=== PATIENT | female | born 2005 | race Caucasian/White ===

== ENCOUNTER 2025-01-10 02:46 | Emergency (ER) | payer OTHER, SELFPAY ==
[2025-01-10 02:48] VITALS: BP 137/106; PULSE 110; RESP 18; TEMP 37.8; O2SAT 100
[2025-01-10 04:48] LABS: BEDSIDEPREGUCG Negative (Negative)
[2025-01-10 04:51] LABS: Basophils Percent Auto 0.3 % (0.2-1.2); Eosinophils Percent Auto 0.2 % (0-4.4); Hematocrit 41.2 % (37.0-47.0); Hemoglobin 13.8 g/dL (12.0-15.0); Immature Granulocyte Absolute 0.06 K/mm3 (0.00-0.031); Immature Granulocyte Percent A 0.5 % (0-0.5); Lymphocytes Absolute Auto 0.75 K/mm3 (0.9-3.2); Lymphocytes Percent Auto 6.4 % (18.3-44.2); Mean Corpuscular HGB Conc 33.5 g/dl (32-36); Mean Corpuscular Hemoglobin 28.9 pg (26-34); Mean Corpuscular Volume 86.2 fl (80-100); Monocytes Absolute Auto 0.6 K/mm3 (0.1-0.6); Monocytes Percent Auto 4.9 % (2.6-8.5); Neutrophils Absolute Auto 10.3 K/mm3 (1.3-6.7); Neutrophils Percent Auto 87.7 % (45.5-73.1); Platelet Count Result 173 k/mm3 (150-375); Red Blood Count 4.78 M/mm3 (4.2-5.4); Red Cell Distribution Width 11.9 % (11.5-14.5); White Blood Count 11.7 K/mm3 (4.5-10.0)
[2025-01-10 04:54] LABS: Add Urine Microscopic? NO; Appearance Urine Clear (Clear); Bilirubin Urine Negative (Negative); Blood Urine Negative (Negative); Color Urine Yellow (Yellow); Glucose Urine UA Negative (Negative); Ketones Urine Negative (Negative); Leukocyte Esterase Ur Negative LEU/UL (Negative); Nitrate Urine Negative (Negative); Protein Urine Negative (Negative); Specific Grav Ur 1.015 (1.001-1.035); Urobilinogen Urine 0.2 mg/dL (<2.0); pH Urine 5.5 (5.0-9.0)
[2025-01-10 05:00] VITALS: BP 98/60; PULSE 81; RESP 18; TEMP 38.3; O2SAT 100
[2025-01-10 05:01] LABS: Alanine Aminotransferase 14 U/L (6-35); Albumin Level 4.7 g/dL (3.5-5.1); Alkaline Phosphatase 60 U/L (38-126); Anion Gap 12 mmol/L (4-12); Aspartate Amino Transferase 29 U/L (14-36); Bilirubin,Total 0.7 mg/dL (0.2-1.3); Blood Urea Nitrogen 13 mg/dL (7-17); Calcium 9.5 mg/dL (8.4-10.2); Carbon Dioxide 24 mmol/L (22-30); Chloride 102 mmol/L (98-107); Estimated Glomerular Filt Rate > 60; Glucose 98 mg/dL (65-110); Lipase 132 U/L (23-300); Sodium 138 mmol/L (137-145)
[2025-01-10 05:12] LABS: Strep Group A RT-PCR DETECTED (Negative)
[2025-01-10 05:27] LABS: Influenza A QL RT-PCR Negative (Negative); Influenza B QL RT-PCR Negative (Negative); RSV RNA, RT-PCR Negative (Negative); SARS-CoV-2 RNA PCR Negative (Negative)
--- NOTE | 2025-01-10 06:10 | ED.GENADULT ---
HPI - General Adult General Chief complaint: Fever Stated complaint: 102 fever at 1, diarrhea, sore throat Time Seen by Provider: 01/10/25 05:58 History of Present Illness HPI narrative: 19-year-old female presenting with 2 days of sore throat and fevers up to 101. She has had some diarrhea. Denies chest pain difficulty breathing or abdominal pain. Denies urinary symptoms. Related Data Allergies Allergy/AdvReac Type Severity Reaction Status Date / Time No Known Allergies Allergy Verified 01/10/25 04:03 Exam Narrative: APPEARANCE: No apparent distress. Head: Tonsils are erythematous with exudates EYES: EOMI, NOSE: Atraumatic NECK: Trachea midline RESPIRATORY: No increased rate of breathing clear to auscultation CARDIOVASCULAR: RRR, ABDOMINAL: Non-distended MUSCULOSKELETAl: No obvious deformities NEURO: Alert. Moving 4/4 extremities SKIN:: Warm, dry. Normal color PSYCHIATRIC: Normal affect Course Vital Signs Vital signs: Vital Signs Temperature 100.1 F H 01/10/25 02:48 Pulse Rate 110 H 01/10/25 02:48 Respiratory Rate 18 01/10/25 02:48 Blood Pressure 137/106 H 01/10/25 02:48 Pulse Oximetry 100 01/10/25 02:48 Oxygen Delivery Room Air 01/10/25 02:48 Temperature 101 F H 01/10/25 05:00 Pulse Rate 81 01/10/25 05:00 Respiratory Rate 18 01/10/25 05:00 Blood Pressure 98/60 L 01/10/25 05:00 Pulse Oximetry 100 01/10/25 05:00 Oxygen Delivery Room Air 01/10/25 02:48 Medical Decision Making [facility] Narrative Medical decision making narrative: -Course: 19-year-old female presenting with fevers and sore throat. Positive for strep. Otherwise well-appearing with stable vitals. Treated with antibiotics steroids and NSAIDs. Discharged with return precautions. -DDX includes but is not limited to: Strep throat, viral syndrome, mono Vital Signs Vital Signs: Vital Signs Temperature 100.1 F H 01/10/25 02:48 Pulse Rate 110 H 01/10/25 02:48 Respiratory Rate 18 01/10/25 02:48 Blood Pressure 137/106 H 01/10/25 02:48 Pulse Oximetry 100 01/10/25 02:48 Oxygen Delivery Room Air 01/10/25 02:48 Temperature 101 F H 01/10/25 05:00 Pulse Rate 81 01/10/25 05:00 Respiratory Rate 18 01/10/25 05:00 Blood Pressure 98/60 L 01/10/25 05:00 Pulse Oximetry 100 01/10/25 05:00 Oxygen Delivery Room Air 01/10/25 02:48 Lab Data 01/10/25 04:40 01/10/25 04:40 Labs: Lab Results 01/10/25 01/10/25 Range/Units 04:40 04:46 WBC 11.7 H (4.5-10.0) K/mm3 RBC 4.78 (4.2-5.4) M/mm3 Hgb 13.8 (12.0-15.0) g/dL Hct 41.2 (37.0-47.0) % MCV 86.2 (80-100) fl MCH 28.9 (26-34) pg MCHC 33.5 (32-36) g/dl RDW 11.9 (11.5-14.5) % Plt Count 173 (150-375) k/mm3 MPV 11.0 H (7.4-10.4) fl Immature Gran % (Auto) 0.5 (0-0.5) % Neut % (Auto) 87.7 H (45.5-73.1) % Lymph % (Auto) 6.4 L (18.3-44.2) % [place] % (Auto) 4.9 (2.6-8.5) % Eos % (Auto) 0.2 (0-4.4) % Baso % (Auto) 0.3 (0.2-1.2) % Lymph # (Auto) 0.75 L (0.9-3.2) K/mm3 [place] # (Auto) 0.6 (0.1-0.6) K/mm3 Eos # (Auto) 0.0 (0-0.3) K/mm3 Baso # (Auto) 0.0 (0.0-0.1) K/mm3 Abs Immat Gran (auto) 0.06 H (0.00-0.031) K/mm3 Absolute Neuts (auto) 10.3 H (1.3-6.7) K/mm3 Absolute Nucleated RBC 0.000 (0.0-0.012) K/mm3 Nucleated RBC % 0.0 (0.0-0.2) % Sodium 138 (137-145) mmol/L Potassium 4.0 (3.4-5.0) mmol/L Chloride 102 (98-107) mmol/L Carbon Dioxide 24 (22-30) mmol/L Anion Gap 12 (4-12) mmol/L BUN 13 (7-17) mg/dL Creatinine 0.67 L (0.7-1.0) mg/dL Estim Creat Clear Calc Not Reportable Estimated GFR > 60 (59 - ) Glucose 98 (65-110) mg/dL Calcium 9.5 (8.4-10.2) mg/dL Total Bilirubin 0.7 (0.2-1.3) mg/dL AST 29 (14-36) U/L ALT 14 (6-35) U/L Alkaline Phosphatase 60 (38-126) U/L Total Protein 8.0 (6.3-8.2) g/dL Albumin 4.7 (3.5-5.1) g/dL Lipase 132 (23-300) U/L Urine Color Yellow (Yellow) Urine Appearance Clear (Clear) Urine pH 5.5 (5.0-9.0) Ur Specific [place] 1.015 (1.001-1.035) Urine Protein Negative (Negative) mg/dL Urine Glucose (UA) Negative (Negative) mg/dL Urine Ketones Negative (Negative) mg/dL Ur Blood (Man) Negative (Negative) Urine Nitrate Negative (Negative) Urine Bilirubin Negative (Negative) Urine Urobilinogen 0.2 (<2.0) mg/dL Leukocyte Esterase Rfl Negative (Negative) REY/UL POC Urine HCG, Qual Negative (Negative) Influenza A (RT-PCR) Negative (Negative) Influenza B (RT-PCR) Negative (Negative) RSV (RT-PCR) Negative (Negative) SARS-CoV-2 RNA (RT-PCR) Negative (Negative) Group A Strep (PCR) Detected A (Negative) Discharge Plan Discharge Clinical Impression: Strep throat Patient Disposition: Home, Self-Care Condition: Stable Instructions: Antibiotic Form, Pharyngitis (ED) Additional Instructions: You have strep throat. Please complete the antibiotics as instructed. Use Motrin and Tylenol for pain. If you develop difficulty swallowing your own spit or difficulty breathing please return to ED for re-evaluation. Patient Language: Hungarian Prescriptions: New amoxicillin 500 mg capsule 500 mg PO Q12H Qty: 20 0RF ibuprofen 800 mg tablet 800 mg PO TID PRN (Reason: pain) 7 Days Qty: 21 0RF acetaminophen 500 mg tablet 1,000 mg PO TID PRN (Reason: antwan) 7 Days Qty: 42 0RF Follow-up/Referrals: PHYSICIAN,CIVIL GEOTECHNICAL ENGINEER [Primary Care Provider] -
--- OUTSIDE RECORDS SUMMARY | 2025-01-10 06:12 | XMS_ITS | Referral Summary ---
Author Organization [facility] Address [address] [place] [address] Care Team Providers Care Smokehouse Operator Name Role Phone No, Physician Primary Care Provider [phone] Allergies No known active allergies Medications norethindrone-e. 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 CORRECTION WORKER Gender Identity Not on file Sexual Orientation Not on file Last Filed Vital Signs Vital Sign Reading Time Taken Comments Blood Pressure 123/85 12/20/2023 8:10 AM CORRECTION WORKER Pulse 75 11/28/2023 1:02 PM CORRECTION WORKER Temperature - - Respiratory Rate - - Oxygen Saturation 100% 11/28/2023 1:02 PM CORRECTION WORKER Inhaled Oxygen Concentration - - Weight 75.8 kg (167 lb) 12/20/2023 8:10 AM CORRECTION WORKER Height 172.7 cm (5' 8 ) 12/20/2023 8:10 AM CORRECTION WORKER Body Mass Index 25.39 12/20/2023 8:10 AM CORRECTION WORKER Plan of Treatment Not on file Insurance [employer] [facility] H[facility]/PPO Address: [address] [address] [employer] [facility] Address: [address] [address] Care Teams Smokehouse Operator Relationship Specialty Start Date End Date No, Physician PCP - General 11/28/23
--- OUTSIDE RECORDS SUMMARY | 2025-01-10 06:12 | XMS_ITS | Clinical Summary ---
Author Organization [facility] Address [address] [place] [address] Care Team Providers Care Manager Change Name Role Phone No, Physician Primary Care Provider [phone] Allergies No known active allergies Medications norethindrone-e. [...] on file Legal Sex Female 8:10 AM CAUL DRESSER Gender Identity Not on file Sexual Orientation Not on file Obstetrics History Last Filed Vital Signs Vital Sign Reading Time Taken Comments Blood Pressure 123/85 12/20/2023 8:10 AM CAUL DRESSER Pulse 75 11/28/2023 1:02 PM CAUL DRESSER Temperature - - Respiratory Rate - - Oxygen Saturation 100% 11/28/2023 1:02 PM CAUL DRESSER Inhaled Oxygen Concentration - - Weight 75.8 kg (167 lb) 12/20/2023 8:10 AM CAUL DRESSER Height 172.7 cm (5' 8 ) 12/20/2023 8:10 AM CAUL DRESSER Body Mass Index 25.39 12/20/2023 8:10 AM CAUL DRESSER Plan of Treatment Health Maintenance Due Date Last Done Comments Depression Screening 2004 Hepatitis C Screening 2004 Meningococcal B Vaccine (1 o f 2 - Standard) 2020 Regular Well Visit/Exam 18-64 2022 Covid-19 Vaccine (2023-2 5 season) 2024 07/01/2021, 05/19/2021 Influenza Vaccine (#1) 2024 07/16/2017 DTaP/Tdap/Td Vaccine (7 - Td or Tdap) 07/16/2027 07/16/2017, 08/21/2008, 01/19/2006, Additional history exists Pneumococcal vaccine <65 Completed 005, 01/23/2005, 2004, Additional history exists Hepatitis B Screening Completed 01/19/2006 , 01/23/2005, 2004, Additional history exists Varicella Vaccines Completed 08/21/2008, 01/19/2006 HPV Vaccines Completed 02/01/2018, 08/16, 07/16/2017 Meningococcal Vaccine Completed 07/25/2022, 016 Insurance [employer] [facility] HMO/PPO Address: [address] [address] [place] [address] [employer] [facility]PPO Address: [facility] [address] [place] [address] Care Teams Manager Change Relationship Specialty Start Date End Date No, Physician PCP - General 11/28/23
[2025-01-10] MEDS: AMOXICILLIN 500 MG CAPSULE PO (06:32)
[2025-01-10] MEDS: KETOROLAC 15 MG/ML VIAL (*BKC) IV PUSH (06:32)
[2025-01-10] MEDS: dexAMETHasone SOD PHOS INJ 10 MG/ML 1 ML VIAL IV PUSH (06:32)
== END 2025-01-10 06:47 | disposition home or self-care (01) ==
PROVIDERS: Emergency Provider Emergency Medicine
DX: J02.0 Streptococcal pharyngitis (principal); Z20.822 Contact with and (suspected) exposure to COVID-19
CPT/HCPCS: 36415; 80053; 81003; 81025; 83690; 85025; 87637; 87651; 96374; 96375; 99284; A9270; J1100; J1885

== ENCOUNTER 2025-06-04 21:39 | Emergency (ER) | payer OTHER, SELFPAY ==
--- NOTE | ~2025-06-04 | XR_ITS ---
HISTORY: injury COMPARISON: None TECHNIQUE: 3 views of the right wrist were performed. FINDINGS: No acute fracture is identified. The carpal arcs are intact. Mild radiocarpal joint space narrowing with sclerosis of the distal radius is present. The remaining visualized joint spaces are otherwise preserved. Bone mineralization is age-appropriate. No significant soft tissue swelling is noted. No radiopaque foreign body is identified. IMPRESSION: No acute fracture or dislocation Reviewed, dictated and finalized at location A.
[2025-06-04 21:43] VITALS: BP 135/93; PULSE 68; RESP 20; TEMP 36.4; O2SAT 100
--- NOTE | 2025-06-04 21:58 | ED.UPPEXIN ---
HPI - Extremity Injury (Upper) General Chief Complaint: Extremity Injury, Upper Stated Complaint: right wrist injury Time Seen by Provider: 06/04/25 21:48 History of Present Illness HPI narrative: 19-year-old female presents emergency department for right wrist pain after injury that occurred 1.5 hours prior to arrival. Patient states she accidentally got her right wrist slammed in a heavy metal door. She is reporting pain, swelling and bruising to the right distal ulna and mild pain to the distal radius. She states pain is worse with extension of the wrist. She denies other injuries acquired. Related Data Allergies Allergy/AdvReac Type Severity Reaction Status Date / Time No Known Allergies Allergy Verified 06/04/25 21:46 Review of Systems Review of Systems: All systems reviewed & are unremarkable except as noted in HPI and below Exam Narrative: GENERAL: Well-appearing, well-nourished, and in no acute distress. HEAD: Normocephalic, atraumatic. ENT: Nares clear, no rhinorrhea or epistaxis. Mucous membranes moist. NECK: Supple. CHEST: Clear to auscultation. No respiratory distress. HEART: Regular rate and rhythm. No murmur heard. Normal peripheral pulses. EXTREMITIES: RUE: Mild edema, ecchymosis and tenderness to the right distal ulna, mild tenderness to the distal radius. No obvious deformities. Patient has full active and passive range of motion of wrist. No tenderness remainder of hand or forearm. No snuffbox tenderness. Patient has full range of motion of all digits. Sensation intact throughout. Radial pulses 2+. Cap refill less than 2. Compartments soft SKIN: Warm, dry, no rash. NEURO: No focal deficits. Alert and oriented x3 Course Vital Signs Vital signs: Vital Signs Temperature 97.6 F 06/04/25 21:43 Pulse Rate 68 06/04/25 21:43 Respiratory Rate 20 06/04/25 21:43 Blood Pressure 135/93 H 06/04/25 21:43 Pulse Oximetry 100 06/04/25 21:43 Oxygen Delivery Room Air 06/04/25 21:43 Temperature 97.6 F 06/04/25 21:43 Pulse Rate 68 06/04/25 21:43 Respiratory Rate 20 06/04/25 21:43 Blood Pressure 135/93 H 06/04/25 21:43 Pulse Oximetry 100 06/04/25 21:43 Oxygen Delivery Room Air 06/04/25 21:43 MDM - Extremity Injury (Upper) MDM Narrative Medical decision making narrative: 19-year-old female presents emergency department for right wrist pain after accidentally shooting her recent note heavy metal door 1.5 hours prior to arrival. Vitals stable. Exam is significant for the above. Patient is neurovascularly intact. Compartments soft. X-ray shows no acute fracture dislocation. Patient updated on results. She was given Lenin wrap and Tylenol. Encouraged RICE, Tylenol/ibuprofen for pain and follow-up with PCP. Discussed strict ED return precautions. Patient agreeable with the plan verbalized understanding. Discharged in stable condition. Discharge Plan Discharge Clinical Impression: Contusion of right wrist Qualifiers: Encounter type: initial encounter Qualified Code(s): S60.211A - Contusion of right wrist, initial encounter Patient Disposition: Home Condition: Stable Instructions: Antibiotic Form, Wrist Injury (ED) Additional Instructions: Your x-rays do not show any broken bones or dislocation. Please rest, ice, elevate and keep your risk compressed. Take Tylenol ibuprofen as needed for pain as directed on the bottle [id number]. Return to the emergency department if he develops significantly worsening pain or other concerning symptoms. Follow-up with her primary care provider. Patient Language: Setswana Prescriptions: No Action amoxicillin 500 mg capsule 500 mg PO Q12H Qty: 20 0RF ibuprofen 800 mg tablet 800 mg PO TID PRN (Reason: pain) 7 Days Qty: 21 0RF acetaminophen 500 mg tablet 1,000 mg PO TID PRN (Reason: antwan) 7 Days Qty: 42 0RF Follow-up/Referrals: PHYSICIAN,PREPARATION SUPERVISOR FREEZING [Primary Care Provider, Internal Medicine]
[2025-06-04] MEDS: ACETAMINOPHEN 500 MG TABLET 1000 MG PO (22:52)
== END 2025-06-04 23:15 | disposition home or self-care (01) ==
PROVIDERS: Emergency Provider Physician Assistant
DX: S60.211A Contusion of right wrist, initial encounter (principal); W23.0XXA Caught, crushed, jammed, or pinched between moving objects, initial encounter
CPT/HCPCS: 73110; 99283; A9270